=== PATIENT | female | born 1995 | race African-American/Black ===

== ENCOUNTER 2018-03-16 22:16 | Emergency (ER) | payer OTHER ==
[2018-03-17] MEDS: IBUPROFEN 600 MG TAB PO (00:05)
== END 2018-03-17 01:09 | disposition home or self-care (01) ==
LOC: M ED 03-17 01:09
DX: S60.121A Contusion of right index finger with damage to nail, initial encounter (principal); W21.05XA Struck by basketball, initial encounter; Y92.830 Public park as the place of occurrence of the external cause
CPT/HCPCS: 73140